=== PATIENT | female | born 1965 | race Caucasian/White ===

== ENCOUNTER 2016-11-21 09:05 | Emergency (ER) | payer OTHER ==
[~2016-11-21] VITALS: Ht 157.5 cm; Wt 75.0 kg
[2016-11-21 09:17] VITALS: BP 117/88; PULSE 78; RESP 16; TEMP 97.9; O2SAT 94
[2016-11-21] MEDS ORDERED: DULE100A INH (09:17)
[2016-11-21] MEDS ORDERED: SIMV10TA PO (09:17)
[2016-11-21] MEDS ORDERED: LEVO50TA4 PO (09:17)
--- NOTE | 2016-11-21 11:09 | PD ---
HPI Chief Complaint: Cold / Flu Symptoms Time Seen by Provider: 11:08 Travel History International Travel<30 days: No Contact w/Intl Traveler<30days: No Traveled to known affect area: No History of Present Illness HPI 51-year-old female presents to the emergency Department with complaint of nasal congestion, cough, wheezing 3 days. Denies ear pain. Reports throat irritation with coughing. Cough is worse at night. Taken NyQuil with no relief. No relieving or aggravating factors. Has history of asthma and uses Dulera inhaler daily. Reports subjective fever. Has not been able to take temperature does not have thermometer. Denies headache, chills, nausea, vomiting. No known allergies. Denies tobacco use. No other modifying factors or associated signs and symptoms. PFSH Past Medical History Asthma: Yes Diminished Hearing: No Medical other: Yes (elevated diaphragm) Immunizations Current: Yes Tetanus Vaccination: < 5 Years Influenza Vaccination: No ?: Not Past Surgical History Hysterectomy: Yes Thoracic Surgery: Yes (abd plasty) Social History Alcohol Use: Yes (2 drinks daily) Tobacco Use: No Substance Use: No Allergies-Medications (Allergen,Severity, Reaction): Coded Allergies: No Known Allergies (Unverified , 11/21/16) Reported Meds & Prescriptions Reported Meds & Active Scripts Active Tessalon Perles (Benzonatate) 100 Mg Cap 100 Mg PO TID PRN Deltasone (Prednisone) 20 Mg Tab 40 Mg PO DAILY 4 Days start 11/22/2016 Proair Hfa 8.5 GM Inh (Albuterol Sulfate) 90 Mcg/Act Aer 2 Puff INH Q4-6H PRN 108 mcg/actuation Reported Dulera 120 Act Inh (Mometasone-Formoterol 120 Act Inh) 100-5 Mcg/Act Inh 2 Puff INH BID Levothyroxine (Levothyroxine Sodium) 50 Mcg Tab 50 Mcg PO DAILY Simvastatin 10 Mg Tab 10 Mg PO DAILY Review of Systems Except as stated in HPI: all other systems reviewed are Neg Physical Exam Narrative GENERAL: Well-nourished, well-developed female patient, in no acute distress; afebrile SKIN: Warm and dry. HEAD: Atraumatic. Normocephalic. EYES: Pupils equal and round. No scleral icterus. No injection or drainage. ENT: Mucosa pink and moist. No erythema or exudates. No uvular edema. No uvular , palatal, or tonsillar deviation. Airway patent. Nares without nasal blood, purulent drainage or septal hematoma. EARS: Bilateral pinnae and external canals appear within normal limits. Bilateral tympanic membranes without erythema, dullness or perforation. NECK: Trachea midline. No lymphadenopathy. CARDIOVASCULAR: Regular rate and rhythm. No murmur appreciated. 3+ radial pulses. RESPIRATORY: No accessory muscle use. Lungs with diffuse Wheezing throughout to auscultation. Breath sounds equal bilaterally. No retractions or tachypnea. No Audible wheezing noted. GASTROINTESTINAL: Abdomen soft, non-tender, nondistended. Hepatic and splenic margins not palpable. Bowel sounds are active 4 quadrants. MUSCULOSKELETAL: No obvious deformities. No clubbing. No cyanosis. No edema. NEUROLOGICAL: Awake and alert. Oriented 3. No obvious cranial nerve deficits. Motor grossly within normal limits. Normal speech. Moves all extremities. 5/5 strength to all extremities. PSYCHIATRIC: Appropriate mood and affect; insight and judgment normal. Data Data Last Documented VS Vital Signs Date Time Temp Pulse Resp B/P Pulse Ox O2 Delivery O2 Flow Rate FiO2 11/21/16 11:37 18 96 Room Air 11/21/16 09:17 97.9 78 117/88 Orders Prednisone (Deltasone) (11/21/16 11:15) Albuterol-Ipratropium Neb (Duoneb Neb) (11/21/16 11:15) [facility] Medical Decision Making Medical Screen Exam Complete: Yes Emergency Medical Condition: Yes Medical Record Reviewed: Yes Differential Diagnosis Acute bronchitis, influenza, pneumonia, viral illness Narrative Course 51-year-old female physical examination consistent with acute bronchitis. Patient is in no acute distress and without retractions or tachypnea. Diffuse wheezing on auscultation of the lungs bilaterally. 94% oxygen saturation on room air. Afebrile and nontoxic appearing. DuoNeb 1 and Deltasone administered in the ER. Patient reports improvement in symptoms after breathing treatment. Lungs are clear and equal throughout on auscultation on reevaluation. Oxygen saturation recheck after breathing treatments is 96%. Pro-air inhaler, Deltasone, Tessalon Perles prescribed for home. Patient is medically cleared and stable for discharge. Discussed reasons to return to the emergency department. Instructed patient to follow up with primary care provider. Patient agrees with treatment plan. The patients vital signs are stable and the patient is stable for outpatient follow-up and treatment. Patient discharged home, stable and in no acute distress. Diagnosis Primary Impression: Acute bronchitis Qualified Code: J20.9 - Acute bronchitis, unspecified organism Referrals: Primary Care Physician Patient Instructions: Acute Bronchitis (ED), General Instructions Additional Instructions: Use albuterol inhaler 2 puffs every 4 hours at home as needed for shortness of breath and wheezing Take oral steroids as prescribed and complete full course avoid asthma triggers such as second hand smoke, dust, known allergens [id number] antihistamine or decongestant as directed and as needed for symptom management Follow-up with primary care provider within 1 to 2 days Return to emergency department immediately with worsening of symptoms Med/Other Pt SpecificInfo: Prescription(s) given Scripts Benzonatate (Tessalon Perles)100 Mg [id number] Mg PO TID PRN (COUGH) #21 CAP Ref 0 Prov:Ute ChakrabortyP 11/21/16 Prednisone (Deltasone)20 Mg Tab40 Mg PO DAILY 4 Days Ref 0 start 11/22/2016 Prov:Ute Chakraborty 11/21/16 Albuterol 8.5 GM Inh (Proair Hfa 8.5 GM Inh)90 Mcg/Act Aer2 Puff INH Q4-6H PRN ( SOB/WHEEZING) #1 INHALER Ref 0 108 mcg/actuation Prov:Ute Chakraborty 11/21/16 Disposition: 01 DISCHARGE HOME Condition: Stable Ute Chakraborty Nov 21, 2016 11:09
[2016-11-21] MEDS ORDERED: BENZ100 PO (11:13)
[2016-11-21] MEDS ORDERED: ALBUAER3 INH (11:13)
[2016-11-21] MEDS ORDERED: PRED-503 PO (11:13)
[2016-11-21] MEDS ORDERED: predniSONE 20 MG TAB PO ONE (11:15)
[2016-11-21] MEDS ORDERED: RESP: ALBUTEROL 2.5 MG/IPRATROPIUM 0.5 MG NEB (SCH) INH ONE (11:15)
[2016-11-21 11:37] VITALS: RESP 18; O2SAT 96
== END 2016-11-21 11:49 | disposition home or self-care (01) ==
LOC: PHED 09:05 → PHEFT 11:49
DX: J20.9 Acute bronchitis, unspecified (principal); Z87.09 Personal history of other diseases of the respiratory system; Z79.899 Other long term (current) drug therapy
CPT/HCPCS: 94664; 99284; J7512